=== PATIENT | female | born 1965 | race Caucasian/White ===

== ENCOUNTER 2022-04-04 20:44 | Emergency (ER) | payer SELFPAY ==
[~2022-04-04] VITALS: Ht 165.1 cm; Wt 59.1 kg
[2022-04-04 23:30] VITALS: BP 1318/83
== END 2022-04-04 23:30 | disposition home or self-care (01) ==
LOC: ED 20:44
DX: S52.532A Colles' fracture of left radius, initial encounter for closed fracture (principal); S52.612A Displaced fracture of left ulna styloid process, initial encounter for closed fracture; Z28.310 Unvaccinated for COVID-19; W01.0XXA Fall on same level from slipping, tripping and stumbling without subsequent striking against object, initial encounter

== ENCOUNTER → 2024-01-18 | Outpatient (CLI) | payer SELFPAY | LOC: RAD 12:35 | DX: J44.1 Chronic obstructive pulmonary disease with (acute) exacerbation (principal); M19.012 Primary osteoarthritis, left shoulder ==